=== PATIENT | male | born 1960 | race Two or more races ===

== ENCOUNTER 2023-01-08 02:24 | Outpatient (CLI) | payer SELFPAY | END 2023-01-08 02:25 | disposition critical access hospital (66) | LOC: EMS 02:24 | DX: R10.32 Left lower quadrant pain (principal) | CPT/HCPCS: A0425; A0429 ==

== ENCOUNTER 2023-01-08 02:40 | Emergency (ER) | payer SELFPAY ==
[2023-01-08] MEDS ORDERED: SODIUM CHLORIDE 0.9% 1,000 ML IV STA (02:53)
[2023-01-08] MEDS ORDERED: KETOROLAC 30 MG/ML VIAL IVP STA (02:53)
[2023-01-08] MEDS ORDERED: ONDANSETRON 4 MG/2 ML VIAL IVP STA (02:53)
--- NOTE | 2023-01-08 02:56 | ED Physician Documentation ---
PD HPI ABD PAIN - Stated complaint Stated Complaint: LLQ PAIN - Chief complaint Chief Complaint: Abd Pain - History obtained from History obtained from: Patient - Additional information Additional information: Patient is a 62-year-old male presenting for evaluation of left lower quadrant pain that has been present for a few hours. He describes it as achy. No radiation. He has associated nausea. No fevers, chest pain, shortness of air. Denies dysuria or hematuria. Denies radiation elsewhere. Nothing makes it better or worse. Denies prior history of similar symptoms. Does not take any current medications. Smokes cigarettes but denies regular alcohol or any drug use. Denies abdominal surgeries. Review of Systems Constitutional: denies: Fever Cardiac: denies: Chest pain / pressure Respiratory: denies: Dyspnea GI: reports: Abdominal Pain, Nausea. denies: Vomiting, Diarrhea : denies: Dysuria Musculoskeletal: denies: Back pain PD PAST MEDICAL HISTORY - Present Medications Home Medications: Ambulatory Orders Medication Instructions Recorded Confirmed Ondansetron Odt [Zofran] 4 mg TL Q6H PRN #10 tablet 01/08/23 Oxycodone HCl/Acetaminophen 1 each PO Q6H PRN #14 tablet 01/08/23 [Percocet 5-325 mg Tablet] Tamsulosin [Flomax] 0.4 mg PO DAILY #14 cap 01/08/23 - Allergies Allergies/Adverse Reactions: Allergies Allergy/AdvReac Type Severity Reaction Status Date / Time No Known Drug Allergies Allergy Verified 01/08/23 02:52 PD ED PE NORMAL - General General: Alert and oriented X 3, No acute distress, Well developed/nourished - HEENT HEENT: Atraumatic, Moist mucous membranes, Pharynx benign - Neck Neck: Supple, no meningeal sign - Cardiac Cardiac: RRR, No murmur - Respiratory Respiratory: No respiratory distress, Clear bilaterally - Abdomen Abdomen: Normal bowel sounds, Soft, Non tender, Non distended, Other (No reproducible tenderness in left lower quadrant, no mass, no guarding) - Back Back: No CVA TTP - Derm Derm: Warm and dry - Neuro Neuro: Normal speech Results - Vitals Vitals: Vital Signs - 24 hr 01/08/23 01/08/23 01/08/23 02:48 02:52 04:00 Temperature 36.1 C L Heart Rate 55 L 57 L Respiratory 18 18 20 Rate Blood Pressure 135/78 H 136/63 H O2 Saturation 100 97 01/08/23 01/08/23 05:01 05:08 Temperature Heart Rate 77 81 Respiratory 18 18 Rate Blood Pressure 127/66 127/66 O2 Saturation 100 97 Oxygen O2 Source Room air - Labs Labs: Laboratory Tests 01/08/23 01/08/23 01/08/23 03:05 03:05 03:05 WBC 9.9 RBC 4.63 L Hgb 13.9 L Hct 42.8 MCV 92.4 MCH 30.0 MCHC 32.5 RDW 13.4 Plt Count 261 MPV 10.8 Neut # (Auto) 6.6 Lymph # (Auto) 2.1 [place] # (Auto) 0.7 Eos # (Auto) 0.3 Baso # (Auto) 0.0 Absolute Nucleated RBC 0.00 Nucleated RBC % 0.0 Sodium 141 Potassium 3.7 Chloride 108 Carbon Dioxide 23 Anion Gap 10.0 BUN 24 H Creatinine 0.9 Estimated GFR (MDRD) 86 L Glucose 129 H Calcium 9.1 Total Bilirubin 0.9 AST 21 ALT 19 Alkaline Phosphatase 70 Total Protein 6.4 Albumin 4.0 Globulin 2.4 Albumin/Globulin Ratio 1.7 Lipase 31 Urine Color YELLOW Urine Clarity CLEAR Urine pH 7.0 Ur Specific [place] 1.015 Urine Protein NEGATIVE Urine Glucose (UA) NEGATIVE Urine Ketones 15 H Urine Occult Blood LARGE H Urine Nitrite NEGATIVE Urine Bilirubin NEGATIVE Urine Urobilinogen 1 (NORMAL) Ur Leukocyte Esterase NEGATIVE Urine RBC 11-25 H Urine WBC 0-3 Ur Squamous Epith Cells FEW Squamous Urine Bacteria Few Urine Mucus Few Strands Ur Microscopic Review INDICATED Urine Culture Comments NOT INDICATED PD Medical Decision Making - ED course Complexity details: reviewed results, re-evaluated patient, d/w patient ED course: Patient is a 62-year-old male presenting for evaluation of left lower quadrant pain for the past few hours. Vital signs are stable. Abdominal exam is benign. CBC, chemistries, urine analysis were obtained and reviewed and without significant findings. CT of the abdomen pelvis without contrast was obtained which I also reviewed and there is a 3 mm left ureter stone near the UVJ. Patient had adequate pain relief with just IV Toradol. He was also given IV fluids and Zofran. Patient counseled regarding treatment plan for a ureter stone as well as concerning symptoms to return for. He is given information to follow-up with urology. Departure - Departure Disposition: 01 Home, Self Care Clinical Impression: Left ureteral stone Condition: Stable Instructions: ED Stone Renal W Colic Follow-Up: Marek Heck MD [Provider Admit Priv/Credential] - Prescriptions: Tamsulosin [Flomax] 0.4 mg PO DAILY #14 cap Oxycodone HCl/Acetaminophen [Percocet 5-325 mg Tablet] 1 each PO Q6H PRN #14 tablet PRN Reason: pain Ondansetron Odt [Zofran] 4 mg TL Q6H PRN #10 tablet PRN Reason: Nausea / Vomiting Comments: You have a 3 mm stone in the left ureter which is the tube that connects your kidney to your bladder. It is near your bladder. I have sent prescriptions to [facility] to help you in passing the stone including a narcotic pain medication, antinausea medication and a third medication called Flomax. I have also listed the name of a urologist you can follow-up with. Please take the medications as directed. Return to the emergency department with any worsening symptoms such as uncontrolled pain, fevers. Your prescriptions were sent to [facility] in [place]. I am prescribing a short course of narcotic pain medication for you. These are potentially dangerous and addictive medications that should be used carefully. These medications may constipate you. Take an [id number] stool softener (docusate) twice daily with plenty of water while taking these medications. If you go 24 hours without a bowel movement, take [id number] miralax, per package instructions. Do not drink or drive while taking these medications. If you received narcotic or sedating medications while in the emergency department, do not drive for 24 hours. Store this medication in a safe, secure place and out of reach of children. It is a violation of federal law to give or sell this medication to another person or to use in a manner other than prescribed. The ED will not refill narcotic prescriptions, including prescriptions lost or stolen. To dispose of unwanted medications: 1. [facility] at [address] in [place] has a medication drop box. They accept prescription medications (in pill form) Monday through Monday 9:00 a.m. to 5:00 p.m. 2. The [facility] accepts prescription medications (in pill form only) for disposal year round. Call for more information. 3. Contact the [facility] for the next [facility] sponsored prescription drug collection event. , [phone], or [phone]; Note that many narcotic pain relievers also contain Tylenol/acetaminophen. Please ensure that your total dose of acetaminophen from all sources does not exceed 3 g (3000 mg) per day. Forms: PCP List Discharge Date/Time: 01/08/23 05:09
[2023-01-08 03:13] LABS: BASOPHILS % (AUTO) 0.3 %; EOSINOPHILS # (AUTO) 0.3 10^3/uL (0.0-0.7); EOSINOPHILS % (AUTO) 3.3 %; HCT - HEMATOCRIT 42.8 % (42.0-52.0); HGB - HEMOGLOBIN 13.9 g/dL (14.0-18.0); LYMPHOCYTES # (AUTO) 2.1 10^3/uL (1.5-3.5); LYMPHOCYTES % (AUTO) 21.5 %; MEAN CORPUSCULAR HGB CONC 32.5 g/dL (32.0-36.0); MEAN CORPUSCULAR VOLUME 92.4 fL (80.0-94.0); MEAN PLATELET VOLUME 10.8 fL (7.4-11.4); MONOCYTES # (AUTO) 0.7 10^3/uL (0.0-1.0); MONOCYTES % (AUTO) 7.2 %; NEUTROPHILS # (AUTO) 6.6 10^3/uL (1.5-6.6); NEUTROPHILS % (AUTO) 67.2 %; PLT - PLATELET COUNT 261 10^3/uL (130-450); RED BLOOD COUNT 4.63 10^6/uL (4.70-6.10); RED CELL DISTRIBUTION WIDTH 13.4 % (12.0-15.0); WHITE BLOOD COUNT 9.9 x10^3/uL (4.8-10.8)
[2023-01-08 03:21] LABS: BILIRUBIN,URINE NEGATIVE (NEGATIVE); GLUCOSE, URINE (UA) NEGATIVE (NEGATIVE); KETONES,URINE (UA) 15 mg/dL (NEGATIVE); LEUKOCYTE ESTERASE, URINE NEGATIVE (NEGATIVE); NITRITE,URINE NEGATIVE (NEGATIVE); OCCULT BLOOD,URINE LARGE (NEGATIVE); PROTEIN,URINE NEGATIVE (NEGATIVE); UROBILINOGEN,URINE 1 (NORMAL) E.U./dL (NORMAL)
[2023-01-08 03:25] LABS: CLARITY,URINE CLEAR (CLEAR)
[2023-01-08 03:31] LABS: ALBUMIN/GLOBULIN RATIO 1.7 (1.0-2.2); BILIRUBIN,TOTAL 0.9 mg/dL (0.2-1.0); CALCIUM 9.1 mg/dL (8.5-10.3); CREATININE 0.9 mg/dL (0.6-1.3); POTASSIUM 3.7 mmol/L (3.5-4.5); TOTAL PROTEIN 6.4 g/dL (6.4-8.9)
[2023-01-08 03:32] LABS: BACTERIA,URINE Few /HPF (None Seen); MUCUS,URINE Few Strands; SQUAMOUS EPITHELIAL CELL,UR FEW Squamous (<= Few); WBC,URINE 0-3 /HPF (0-3)
[2023-01-08] MEDS ORDERED: oxyCODONE/ACET 5/325 Prepack 4 PO STA (04:29)
[2023-01-08] MEDS ORDERED: ONDANSETRON ODT 4 MG Prepack 2 TL PRN (04:29)
--- NOTE | 2023-01-08 09:33 | CT Report ---
PROCEDURE: ABDOMEN/PELVIS WO INDICATIONS: LLQ pain TECHNIQUE: A CT scan of the abdomen and pelvis was performed without the use of intravenous contrast. Images we re recorded and evaluated at appropriate window settings. Reformats: coronal and sagittal. For radiat ion dose reduction, the following was used: automated exposure control, adjustment of mA and/or kV ac cording to patient size. COMPARISON: None. FINDINGS: Image quality: Excellent. Lung bases and heart: A small hiatal hernia is incidentally noted. Liver: No solid mass. Gallbladder and biliary tree: Within normal limits. Spleen: No splenomegaly. An accessory splenule is incidentally noted along the hilum of the primary spleen. Pancreas: No pancreatic ductal dilation. Adrenals: There is a low-density right adrenal nodule that measures -15 Hounsfield units and 1.6 cm. The urinary glands otherwise unremarkable. Kidneys and ureters: Moderate left-sided hydronephrosis is seen, with moderate left-sided hydroureter . There is a 3 mm obstructing stone seen at the left ureterovesicular junction, as on series 2 image 82 and on series 5 image 34. Left-sided perinephric fat stranding is seen. No nonobstructing kidney stones can be seen on either side. Bowel and peritoneum: No bowel distension. No pathologic free fluid. A normal appendix is seen. Diverticulosis can be seen, without yessenia findings of active diverticulitis. Lymph nodes: No central or retroperitoneal adenopathy. Vessels: No infrarenal aortic aneurysm. Atherosclerotic calcification is seen. PELVIS Reproductive organs: Unremarkable. Bladder: No wall thickness, accounting for underdistention. Pelvic lymph nodes: No pelvic adenopathy by size criteria. Bones: No aggressive osseous abnormality. Focal L5-S1 degenerative change is seen. Other: No significant ventral or inguinal hernia. IMPRESSION: 3 mm obstructing stone seen at the left ureterovesicular junction, with associated left-sided hydrour eter, hydronephrosis, and perinephric fat stranding. No nonobstructing kidney stones are seen. Additional findings: Small hiatal hernia Accessory splenule Benign, lipid rich right adrenal adenoma. Normal appendix Diverticulosis, without findings of active diverticulitis. Focal L5-S1 degenerative change Note: No significant discrepancy from the preliminary report. Reviewed by: Pedro Arredondo MD on 01/08/2023 8:31 AM AKDT Approved by: Pedro Arredondo MD on 01/08/2023 8:31 AM MIRZA Station ID: [id number]
[2023-01-09 01:04] VITALS: BP 127/66; O2SAT 97
== END 2023-01-08 05:09 | disposition home or self-care (01) ==
LOC: EDBD → ED 02:40
DX: N13.2 Hydronephrosis with renal and ureteral calculous obstruction (principal)
CPT/HCPCS: 36415; 80053; 81001; 81003; 83690; 85025; 87086; 96374; 99284